=== PATIENT | female | born 1955 | race Hispanic/Latino ===

== ENCOUNTER 2019-11-17 03:13 | Emergency (ER) | payer MEDICARE ==
[~2019-11-17 03:13] MED LIST: ACET-3194 PO; ALBU18HF7 IH; AMLO10TA7 PO; ASPI-1181 PO; ATOR40TA71 PO; CARV25TA PO; CHOL200079 PO; CLOP75TA32 PO; FOLI1TAB85 PO; HYDR100T27 PO; ISOS60TA4 PO; LEVO75 PO; LOSA100T58 PO; MINO2.5 PO; NITR0.4T50 SL; OMEP40CA13 PO; UMEC1DIS IH
[2019-11-17] MEDS ORDERED: IPRATROPIUM/ALBUTEROL SULFATE 3 ML SOLUTION IH ONE (03:48)
[2019-11-17] MEDS ORDERED: METHYLPREDNISOLONE SOD SUCC 125MG/2ML VIAL ONE (03:57)
[2019-11-17 04:01] LABS: BASOPHILS % (AUTO) 0.3 % (0.0-5.0); EOSINOPHILS % (AUTO) 0.9 % (0.0-8.0); HEMATOCRIT 25.1 % (36-48); LYMPHOCYTES % (AUTO) 11.2 % (21.0-51.0); MEAN CORPUSCULAR HEMOGLOBIN 29.4 pg (27.0-33.0); MEAN CORPUSCULAR HGB CONC 33.5 g/dL (32.0-36.0); MEAN CORPUSCULAR VOLUME 87.8 fL (79-99); MONOCYTES % (AUTO) 7.1 % (3.0-13.0); NEUTROPHILS % (AUTO) 80.1 % (40.0-77.0); PLATELET COUNT (AUTO) 139 K/uL (130-400); RED BLOOD CELL COUNT(AUTO) 2.86 MIL/uL (4.00-5.50); RED CELL DISTRIBUTION WIDTH 13.6 % (11.0-15.5)
[2019-11-17 04:13] LABS: PARTIAL THROMBOPLASTIN TIME 30.6 SEC (26.3-35.5); PROTHROMBIN TIME 10.8 SEC (9.6-11.6)
[2019-11-17 04:16] LABS: BILIRUBIN,TOTAL 0.3 mg/dL (0.2-1.0); CREATININE 3.3 mg/dL (0.5-1.5); POTASSIUM 4.6 mmol/L (3.5-5.1); TOTAL PROTEIN, SERUM 6.8 g/dL (6.0-8.3)
[2019-11-17 04:36] LABS: B-TYPE NATRIURETIC PEPTIDE 282 pg/mL (0-100)
[2019-11-17] MEDS ORDERED: ALBUTEROL SULFATE 0.083% 2.5 MG/3 ML INH IH ONE (04:37)
[2019-11-17 04:47] LABS: ABG BASE EXCESS -7.1 mmol/L (-2.0-3.0); ABG HCO3 17.2 mmol/L (21.0-28.0); ABG OXYGEN SATURATION 98.7 % (95.0-99.0); ABG PCO2 32 mmHg (32-45)
== END 2019-11-17 07:32 | disposition home or self-care (01) ==
LOC: EDH 03:13
DX: J20.9 Acute bronchitis, unspecified (principal); E78.00 Pure hypercholesterolemia, unspecified; I10 Essential (primary) hypertension; Z90.49 Acquired absence of other specified parts of digestive tract; Z87.891 Personal history of nicotine dependence; Z88.0 Allergy status to penicillin
CPT/HCPCS: 36415; 36600; 71045; 80053; 82550; 82803; 83880; 84484; 85025; 85610; 85730; 87804 ×2; 87880; 93005; 94640 ×2; 96374; 99285; J2930

== ENCOUNTER 2019-11-18 22:21 | Inpatient (IN) | payer MEDICARE ==
[~2019-11-18] VITALS: Ht 157.5 cm; Wt 49.2 kg
[2019-11-18] MEDS ORDERED: IPRATROPIUM/ALBUTEROL SULFATE 3 ML SOLUTION IH ONE (23:46)
[2019-11-19] MEDS ORDERED: RACEPINEPHRINE HCL 2.25% 0.5 ML NEB SOLN ONE (00:03)
[2019-11-19] MEDS ORDERED: PREDNISONE 20 MG TABLET ONE (00:26)
[2019-11-19] MEDS ORDERED: LORAZEPAM 0.5 MG TABLET ONE (00:26)
[2019-11-19 00:36] LABS: ALBUMIN 4.1 g/dL (3.5-5.0); BILIRUBIN,TOTAL 0.3 mg/dL (0.2-1.0); POTASSIUM 4.8 mmol/L (3.5-5.1)
[2019-11-19 00:37] LABS: BASOPHILS % (AUTO) 0.1 % (0.0-5.0); EOSINOPHILS % (AUTO) 0.1 % (0.0-8.0); HEMATOCRIT 25.6 % (36-48); LYMPHOCYTES % (AUTO) 8.6 % (21.0-51.0); MEAN CORPUSCULAR HEMOGLOBIN 30.1 pg (27.0-33.0); MEAN CORPUSCULAR HGB CONC 34.4 g/dL (32.0-36.0); MEAN CORPUSCULAR VOLUME 87.7 fL (79-99); MONOCYTES % (AUTO) 7.2 % (3.0-13.0); NEUTROPHILS % (AUTO) 83.5 % (40.0-77.0); PLATELET COUNT (AUTO) 156 K/uL (130-400); RED BLOOD CELL COUNT(AUTO) 2.92 MIL/uL (4.00-5.50); RED CELL DISTRIBUTION WIDTH 13.6 % (11.0-15.5); WHITE BLOOD COUNT (AUTO) 8.1 K/uL (4.8-10.8)
[2019-11-19 00:46] LABS: ABG BASE EXCESS -5.4 mmol/L (-2.0-3.0); ABG HCO3 19.1 mmol/L (21.0-28.0); ABG OXYGEN SATURATION 99.8 % (95.0-99.0); ABG PCO2 35 mmHg (32-45)
[2019-11-19] MEDS ORDERED: FUROSEMIDE 10 MG/ML 4ML VIAL ONE (00:53)
[2019-11-19] MEDS ORDERED: ASPIRIN 325 MG TABLET ONE (00:53)
[2019-11-19] MEDS ORDERED: ONDANSETRON HCL 4 MG/2 ML VIAL IV PRN (02:15)
[2019-11-19] MEDS ORDERED: NITROGLYCERIN 0.4 MG SL TAB SL PRN (02:15)
[2019-11-19] MEDS: AZITHROMYCIN 500MG+NS 250ML 250 ML IV SCH (02:15)
[2019-11-19] MEDS ORDERED: ACETAMINOPHEN 325 MG TAB PO PRN ×2 (02:15)
[2019-11-19] MEDS ORDERED: DIPHENHYDRAMINE HCL 25 MG CAPSULE PO PRN (02:15)
[2019-11-19] MEDS ORDERED: AZITHROMYCIN 500MG+NS 250ML 250 ML IV ONE (03:10)
[2019-11-19 03:17] LABS: RAPID GROUP A STREP NEGATIVE (NEGATIVE)
[2019-11-19 04:40] VITALS: BP 152/84
[2019-11-19 04:49] LABS: CREATINE KINASE, TOTAL 64 U/L (21-232); MYOGLOBIN 111 ng/mL (10-92); TROPONIN I < 0.04 ng/mL (0.00-0.06)
--- NOTE | 2019-11-19 05:41 | NUR ---
PATIENT ARRIVED FROM ER. DX CHF EXACERBATION WITH ELEVATED D-DIMER. PATIENT BROUGHT UP WITH NRM MASK, CONT TO FEEL SOB AND WE PLACED HER ON BIPAP ON ORDERED SETTINGS. PT'S DAUGHTER PRESENT AND ASSISTED WITH ADMISSION. DAUGHTER STATES PATIENT WAS SEEN ABOUT 3 DAYS AGO IN THE ER WITH SAME SYMPTOMS. PATIENT DID NOT IMPROVE AND RETURNED. LACI CEBALLOS TEXTILE CONVERTER IN TO EVALUATE PATIENT. PATIENT AND DAUGHTER BOTH ORIENTED TO ROOM AND POC. TELE WITH SR 96. WILL CONT TO MONITOR CLOSELY.
[2019-11-19] MEDS: IPRATROPIUM/ALBUTEROL SULFATE 3 ML SOLUTION IH SCH ×5 (06:59→21:52)
[2019-11-19 08:00] VITALS: BP 147/77
[2019-11-19] MEDS: FUROSEMIDE 10 MG/ML 4ML VIAL IVP SCH ×2 (09:53→19:31)
[2019-11-19] MEDS: METHYLPREDNISOLONE SOD SUCC 40MG/ML 1ML IVP SCH ×3 (09:53→19:31)
[2019-11-19] MEDS: HEPARIN SODIUM 5000UNIT/ML 1ML VIAL SQ SCH ×3 (09:58→19:24)
[2019-11-19 12:00] VITALS: BP 120/60
[2019-11-19] MEDS: CEFTRIAXONE SODIUM 1 GM IVP SCH (13:54)
[2019-11-19] MEDS: FAMOTIDINE/PF 20 MG/2 ML VIAL IV SCH ×2 (14:00→19:31)
[2019-11-19 16:00] VITALS: BP 119/60
--- NOTE | 2019-11-19 16:02 | NUR ---
DCP CM met with pt and family discussed dc plans. Pt is assist with ADL's, lives at home alone, has a provider 30hrs/wk. Uses cane, standard walker, shower chair, nebulizer machine, and [employer] [facility] for Rx. Denies any other equipments/services. Feels safe to go back home, daughter able to assist with transportation and needs as necessary. DC plan to home once stable. CM to cont to follow up. Addendum: 11/19/19 at 1603 by BHARATH REED LVN CM Amended: Links added.
[2019-11-19] MEDS ORDERED: LINEZOLID 600 MG/ISO-OSM 300 ML IV SCH (17:58)
[2019-11-19 19:00] VITALS: BP 144/84
[2019-11-19] MEDS ORDERED: ETOMIDATE 2 MG/ML 10 ML VIAL IVP ONE (22:29)
[2019-11-19] MEDS ORDERED: ROCURONIUM BROMIDE 10MG/1ML 5ML VL IV ONE (22:29)
[2019-11-20] VITALS (26 sets, daily range): BP systolic 60–185; BP diastolic 24–90
[2019-11-20] MEDS: AZITHROMYCIN 500MG+NS 250ML 250 ML IV SCH (01:28)
[2019-11-20] MEDS: IPRATROPIUM/ALBUTEROL SULFATE 3 ML SOLUTION IH SCH ×5 (01:31→16:48)
--- NOTE | 2019-11-20 01:50 | NUR ---
patient having nausea and vomiting. zofran given by corina cho at 0152. patient's daughter states she gave the patient 1 tablet of isosorbride mononitrate ER 60 mg home medication and 2 tablets of acetaminophen 500 mg each (total of 1,000 mg) because she says that her mother felt "she was not given the blood pressure medications here in the hospital." vitals at 01:55 were heart rate of 84, blood pressure of 181/81, spo2 of 98 % on nasal cannula. Nurse practioner Giovanni Singh was called and ordered a stat EKG, hydralazine 10 mg prn q6 hrs for systolic greater than 160, and cardiac panel stat. hydralazine given at 02:20 stat and her blood pressure at 02:27 was 188/76, heart rate of 86, temperature of 98.2, blood glucose of 173. at 02:38 her blood pressure was 179/117, heart rate of 100, o2sat of 99% with Bipap, temperature of 99. her stat ekg showed normal sinus rhythm of 62 with anteroseptal infarct age undetermined, but her ekg in august also had an anteroseptal infarct age undetermined on 08/26/2019 at 19:08. patient had a change of mental status at 02:28. her pupils were not responding the the flashlight and she was not responding or following commands. she still had a pulse and a rapid response was called. housecalls nurse, RT, microbiology lab technician and RELINER at the bedside. Her vitals at 02:47 am were 175/83, heart rate of 76, respirations of 12 labored, and temperature of 99.0. cbc, cmp, lactic acid, magnesium, abg gas were ordered along with a ct of the head without contrast. patient taken for CT of the head at 03 am by Kenya HEARN, Corina Cho RN, and Radha MILLS. CT of the head took 2 minutes and showed intercranial bleed. patient transferred to ICU to room 209 and report given to nurse Shemar RN.
[2019-11-20] MEDS ORDERED: HYDRALAZINE HCL 20 MG/ML VIAL ONE (02:08)
[2019-11-20] MEDS ORDERED: HYDRALAZINE HCL 20 MG/ML VIAL IV PRN (02:15)
[2019-11-20] MEDS ORDERED: HYDR100T27 PO (02:16)
[2019-11-20 02:39] LABS: HEMATOCRIT 25.1 % (36-48); MEAN CORPUSCULAR HEMOGLOBIN 29.9 pg (27.0-33.0); MEAN CORPUSCULAR HGB CONC 34.7 g/dL (32.0-36.0); MEAN CORPUSCULAR VOLUME 86.3 fL (79-99); PLATELET COUNT (AUTO) 186 K/uL (130-400); RED BLOOD CELL COUNT(AUTO) 2.91 MIL/uL (4.00-5.50); RED CELL DISTRIBUTION WIDTH 13.1 % (11.0-15.5); WHITE BLOOD COUNT (AUTO) 9.7 K/uL (4.8-10.8)
[2019-11-20 02:41] LABS: ABG BASE EXCESS -2.9 mmol/L (-2.0-3.0); ABG OXYGEN SATURATION 98.5 % (95.0-99.0); ABG PCO2 30 mmHg (32-45)
[2019-11-20 02:56] LABS: ALBUMIN 4.2 g/dL (3.5-5.0); BILIRUBIN,TOTAL 0.4 mg/dL (0.2-1.0); CREATININE 3.3 mg/dL (0.5-1.5); PHOSPHORUS 4.8 mg/dL (2.5-4.9); POTASSIUM 3.7 mmol/L (3.5-5.1); TOTAL PROTEIN, SERUM 7.7 g/dL (6.0-8.3)
[2019-11-20 03:18] LABS: CHOLESTEROL 103 mg/dL (<200); HDL CHOLESTEROL 69 mg/dL (35-85); LDL DIRECT 56 mg/dL (0-99); TRIGLYCERIDES 56 mg/dL (30-200)
[2019-11-20 03:27] LABS: CREATINE KINASE, TOTAL 50 U/L (21-232); MYOGLOBIN 98 ng/mL (10-92); TROPONIN I < 0.04 ng/mL (0.00-0.06)
[2019-11-20 03:28] LABS: % IRON SATURATION 28.2 % (22-44); LYMPHOCYTES % (MANUAL) 3 % (22-44); MAN.DIFF COMMENT-IMPRESSION MANUAL DIFFERENTIAL; MONOCYTES % (MANUAL) 1 % (2-9); PLATELET MORPHOLOGY COMMENT ADEQUATE; SEGMENTED NEUTROPHILS % 96 % (40-70)
[2019-11-20] MEDS ORDERED: FENTANYL CITRATE PF 50 MCG/1 ML 2ML VIAL ONE (03:32)
[2019-11-20] MEDS ORDERED: LIDOCAINE HCL 2% 20ML ONE (03:32)
[2019-11-20] MEDS ORDERED: LABETALOL HCL 5 MG/ML 20ML VIAL IV ONE (03:34)
[2019-11-20] MEDS ORDERED: PROPOFOL 1000 MG/100 ML 100 ML IV ONE (03:47)
[2019-11-20] MEDS ORDERED: NICARDIPINE HCL 25 MG/10 ML ML IV ONE (04:29)
[2019-11-20] MEDS ORDERED: SODIUM CHLORIDE 0.9% 250 ML IV ONE (04:30)
[2019-11-20] MEDS ORDERED: NICARDIPINE IN NACL, ISO-OSM 200 ML IV PRN (04:30)
[2019-11-20] MEDS ORDERED: PHARMACY COMMUNICATION MISC SCH (06:30)
[2019-11-20] MEDS ORDERED: NICARDIPINE HCL 50 MG in SODIUM CHLORIDE 0.9% 230 ML IV SCH (06:45)
--- NOTE | 2019-11-20 07:45 | NUR ---
PT'S FAMILY AT BEDSIDE AND WERE ALLOWED TO ASK QUESTIONS AND WERE ADVISED OF THE GRIM PROGNOSIS. DAUGHTERS AND SON ARE UNABLE TO MAKE DECISION ON DNR STATUS. PT HAS DROPPED THE PULSE IN THE 30-40'S AND BLOOD PRESSURE DOWN TO 70'S, CARDENE DRIP HAS BEEN STARTED ON DOPAMINE.
[2019-11-20 07:53] LABS: INR 1.03 (0.85-1.15); PARTIAL THROMBOPLASTIN TIME 28.1 SEC (26.3-35.5); PROTHROMBIN TIME 11.1 SEC (9.6-11.6)
[2019-11-20] MEDS ORDERED: DOPAMINE 800MG/D5 250ML 250 ML IV ONE (08:28)
--- NOTE | 2019-11-20 10:50 | NUR ---
FAMILY MEMBERS SPOKE AMONG THEMSELVES AND AGREED TO SIGN DNR PAPERWORK. WILL ADVISE DOCTORS OF FAMILY DECISION.
[2019-11-20] MEDS ORDERED: ASPIRIN 81MG TAB.CHEW PO SCH (14:00)
[2019-11-20] MEDS ORDERED: CLOPIDOGREL BISULFATE 75 MG TAB PO SCH (14:00)
--- NOTE | 2019-11-20 17:00 | NUR ---
DR. MASCORRO HERE AND SPOKE WITH FAMILY ABOUT GRIM PROGNOSIS AND ADVISED FAMILY OF PATIENTS PRESENT NEED FOR VENTILATOR AND PRESSORS. DOPAMINE DRIP HAS BEEN ON SINCE EARLY THIS AM.
[2019-11-20] MEDS: METHYLPREDNISOLONE SOD SUCC 40MG/ML 1ML IVP SCH (18:16)
[2019-11-20] MEDS: CEFTRIAXONE SODIUM 1 GM IVP SCH (18:18)
[2019-11-20] MEDS: FUROSEMIDE 10 MG/ML 4ML VIAL IVP SCH (18:19)
[2019-11-20] MEDS: FAMOTIDINE/PF 20 MG/2 ML VIAL IV SCH (18:19)
--- NOTE | 2019-11-20 21:00 | NUR ---
update DR. MASCORRO TALKED EXTENSIVELY TO FAMILY EARLIER ABOUT WITHDRAWAL, OK TO PROCEED. [address] ALICIA FAMILY DECISION TO WITHDRAWAL OF CARE- NEW MED ORDERS RECEIVED. HOSPITALIST LACI GANN AND SILVESTRE MORENO ALSO MADE AWARE FAMILY TO WITHDRAWAL
[2019-11-20] MEDS ORDERED: MIDAZOLAM HCL 1 MG/ML 2ML VIAL IVP PRN (21:15)
[2019-11-20] MEDS ORDERED: MORPHINE SULFATE 2 MG/ML 1ML SYG IVP PRN (21:15)
[2019-11-20] MEDS ORDERED: MIDAZOLAM HCL 1 MG/ML 2ML VIAL ONE (21:41)
[2019-11-20] MEDS ORDERED: MORPHINE SULFATE 2 MG/ML 1ML SYG ONE (21:42)
--- NOTE | 2019-11-20 22:30 | NUR ---
SUMMONED BY STAFF TO ROOM 207. PT. SUPINE IN BED SURROUNDED BY SEVERAL FAMILY MEMBERS. NO BLOOD PRESSURE, HEART TONES OR BREATH SOUNDS AUDIBLE ON AUSCULTATION. PUPILS FIXED AND DILATED. TIME OF : 2229
--- NOTE | 2019-11-20 22:42 | NUR ---
PHYSICIAN Edelmira CEBALLOS NOTIFIED OF PATIENT'S
== END 2019-11-20 22:30 | disposition expired | DRG 871 ==
LOC: EDH 22:21 → EDHIP 11-19 01:58 → 3BH 11-19 02:43 → 2BH 11-20 03:18
PROVIDERS: ADMIT Internal Medicine; ATTEND Internal Medicine
PROC: 5A09357 Assistance with Respiratory Ventilation, Less than 24 Consecutive Hours, Continuous Positive Airway Pressure (ICD-10-PCS; principal; 2019-11-19)
PROC: 5A09357 Assistance with Respiratory Ventilation, Less than 24 Consecutive Hours, Continuous Positive Airway Pressure (ICD-10-PCS; 2019-11-20)
PROC: 5A1935Z Respiratory Ventilation, Less than 24 Consecutive Hours (ICD-10-PCS; 2019-11-20)
PROC: 0BH17EZ Insertion of Endotracheal Airway into Trachea, Via Natural or Artificial Opening (ICD-10-PCS; 2019-11-20)
DX: A41.9 Sepsis, unspecified organism (principal); I50.33 Acute on chronic diastolic (congestive) heart failure; J96.01 Acute respiratory failure with hypoxia; G93.5 Compression of brain; S06.5X9A Traumatic subdural hemorrhage with loss of consciousness of unspecified duration, initial encounter; J44.1 Chronic obstructive pulmonary disease with (acute) exacerbation; I13.0 Hypertensive heart and chronic kidney disease with heart failure and stage 1 through stage 4 chronic kidney disease, or unspecified chronic kidney disease; E87.1 Hypo-osmolality and hyponatremia; N17.9 Acute kidney failure, unspecified; N18.4 Chronic kidney disease, stage 4 (severe); R57.9 Shock, unspecified; K21.9 Gastro-esophageal reflux disease without esophagitis; D63.1 Anemia in chronic kidney disease; E03.9 Hypothyroidism, unspecified; E11.22 Type 2 diabetes mellitus with diabetic chronic kidney disease; E78.00 Pure hypercholesterolemia, unspecified; E78.5 Hyperlipidemia, unspecified; Z66 Do not resuscitate; F41.9 Anxiety disorder, unspecified; I25.10 Atherosclerotic heart disease of native coronary artery without angina pectoris; Z85.21 Personal history of malignant neoplasm of larynx; Z85.819 Personal history of malignant neoplasm of unspecified site of lip, oral cavity, and pharynx; Z87.891 Personal history of nicotine dependence; Y93.89 Activity, other specified; Y92.89 Other specified places as the place of occurrence of the external cause; Y99.8 Other external cause status; Z88.0 Allergy status to penicillin; Z82.49 Family history of ischemic heart disease and other diseases of the circulatory system
CPT/HCPCS: 31500; 36415; 36600; 70450; 71045; 80053; 80061; 82550; 82803; 82948; 83540; 83550; 83605; 83735; 83874; 83880; 84100; 84145; 84484; 85025; 85378; 85610; 85730; 86850; 86900; 86901; 87040; 87486; 87581; 87633; 87798; 87804; 87880; 93005; 93970; 94002; 94640; 94660; 94664; 96374; 99291; G0378; J0360; J0456; J0696; J1265; J1644; J1940; J2020; J2250; J2405; J2704; J2920; J2930; J3010; J3490; J7030